=== PATIENT | male | born 1940 | race African-American/Black ===

== ENCOUNTER 2023-02-13 14:22 | Emergency (ER) | payer OTHER ==
[~2023-02-13] VITALS: Ht 170.2 cm; Wt 69.0 kg
[2023-02-13 14:25] VITALS: TEMP 97.4; O2SAT 81
[2023-02-13 15:24] LABS: BASOPHILS % 2.1 % (0.0-2.0); EOSINOPHILS % 7.3 % (0.0-5.0); HEMATOCRIT. 28.6 % (42.0-52.0); HEMOGLOBIN. 9.7 g/dL (14.0-18.0); LYMPHOCYTES % 8.8 % (20.0-50.0); MEAN CORPUSCULAR HEMOGLOBIN 30.4 pg (28.0-32.0); MEAN CORPUSCULAR VOLUME 90.2 fL (80.0-94.0); MEAN PLATELET VOLUME 10.7 fl (7.4-10.4); MONOCYTES % 5.7 % (2.0-8.0); NEUTROPHILS % 76.1 % (40.0-76.0); PLATELET 271 x1000/uL (130-400); RED BLOOD CELL COUNT 3.17 mill/uL (4.7-6.1)
[2023-02-13 15:34] LABS: CHLORIDE 103 mEq/L (98-107)
[2023-02-13 15:43] LABS: ETHANOL BLOOD < 10 mg/dL (-10)
[2023-02-13] MEDS: CALCIUM GLUCONATE 100MG/ML 10ML VIAL IV NR ×2 (17:59→18:07)
[2023-02-13 19:24] VITALS: BP 132/67; PULSE 80; RESP 12
== END 2023-02-13 19:50 | disposition short-term general hospital (02) ==
LOC: ER 14:22 → CANBEDREQ 02-15 20:33
DX: E87.70 Fluid overload, unspecified (principal); E87.5 Hyperkalemia; N18.6 End stage renal disease; E11.22 Type 2 diabetes mellitus with diabetic chronic kidney disease; Z99.2 Dependence on renal dialysis; Z20.822 Contact with and (suspected) exposure to COVID-19
CPT/HCPCS: 36415; 70450; 71045; 80053; 80320; 83605; 83690; 83880; 84484; 85025; 86850; 86900; 86901; 87040; 87426; 93005; 96374; 99285; C9803; J0610; G0480